=== PATIENT | female | born 1995 | race Two or more races ===

== ENCOUNTER 2018-05-23 18:17 | Emergency (ER) | payer MEDICAID ==
[~2018-05-23] VITALS: Ht 149.9 cm; Wt 75.0 kg
[2018-05-23] MEDS ORDERED: DEXAMETHASONE 4 MG TABLET ONE (18:57)
[2018-05-23] MEDS ORDERED: DEXAMETHASONE 4 MG TABLET PO ONE (19:00)
[2018-05-23 20:14] VITALS: BP 123/78
== END 2018-05-23 20:31 | disposition home or self-care (01) ==
LOC: ED 20:05
DX: B34.9 Viral infection, unspecified (principal); J02.9 Acute pharyngitis, unspecified
CPT/HCPCS: 87081; 87880; 99283